=== PATIENT | male | born 1985 | race Caucasian/White ===

== ENCOUNTER 2021-07-24 09:55 | Emergency (ER) | payer MEDICAID ==
[~2021-07-24] VITALS: Ht 172.7 cm; Wt 63.6 kg
[2021-07-24 09:57] VITALS: BP 124/96
== END 2021-07-24 12:25 | disposition home or self-care (01) ==
LOC: ER 09:55
DX: M25.561 Pain in right knee (principal); Z72.89 Other problems related to lifestyle; Z59.00 Homelessness unspecified
CPT/HCPCS: 73560; 99283